=== PATIENT | male | born 1975 | race Two or more races ===

== ENCOUNTER 2016-08-13 08:05 | Emergency (ER) | payer SELFPAY ==
[~2016-08-13] VITALS: Ht 175.3 cm; Wt 90.7 kg
[~2016-08-13 08:05] MED LIST: NORPTMEDS CO
[2016-08-13 08:20] VITALS: BP 140/80
== END 2016-08-13 09:15 | disposition home or self-care (01) ==
LOC: ER 08:08
DX: L08.89 Other specified local infections of the skin and subcutaneous tissue (principal); B35.3 Tinea pedis

== ENCOUNTER 2017-01-02 08:39 | Emergency (ER) | payer SELFPAY ==
[~2017-01-02] VITALS: Ht 175.3 cm; Wt 104.3 kg
[2017-01-02 08:53] VITALS: BP 137/85
== END 2017-01-02 11:14 | disposition left against medical advice (07) ==
LOC: ER 08:42
DX: J02.9 Acute pharyngitis, unspecified (principal); Z53.21 Procedure and treatment not carried out due to patient leaving prior to being seen by health care provider

== ENCOUNTER 2018-08-15 21:13 | Emergency (ER) | payer MEDICAID ==
[~2018-08-15] VITALS: Ht 175.3 cm; Wt 99.8 kg
[2018-08-15 21:19] VITALS: BP 174/103
[2018-08-15] MEDS ORDERED: cloNIDine HCL 0.1 MG TAB PO ONE (21:30)
== END 2018-08-15 22:30 | disposition home or self-care (01) ==
LOC: ER 21:17
DX: M23.91 Unspecified internal derangement of right knee (principal)
CPT/HCPCS: 29505; 73560

== ENCOUNTER 2018-10-16 10:28 | Emergency (ER) | payer MEDICAID ==
[~2018-10-16] VITALS: Ht 175.3 cm; Wt 104.3 kg
[2018-10-16] MEDS ORDERED: KETOROLAC TROMETH 30 MG/ML 1ML VIAL IV ONE (11:00)
[2018-10-16] MEDS ORDERED: SODIUM CHLORIDE 0.9% 1,000 ML IV ONE ×5 (11:00)
[2018-10-16] MEDS ORDERED: ONDANSETRON HCL 4 MG/2 ML VIAL IV ONE (11:00)
[2018-10-16 11:13] LABS: Basophils # (auto) 0 uL; Basophils % (auto) 0.1 % (0.0-2.0); Eosinophils # (auto) 0 uL; Eosinophils % (auto) 0.1 % (0.0-7.0); Hemoglobin 16.2 g/dL (13.5-17.5); Lymphocytes # (auto) 0.9 uL; Lymphocytes % (auto) 5.9 % (10.0-50.0); Mean Corpuscular Hemoglobin 27.1 pg (28.0-32.0); Mean Corpuscular Volume 82.1 fL (80.0-100.0); Monocytes # (auto) 0.5 uL; Monocytes % (auto) 3.3 % (0.0-12.0); Neutrophils # (auto) 13.3 uL; Neutrophils % (auto) 90.6 % (37.0-80.0); Nucleated Red Blood Cells % 0.1 %; Platelet Count (auto) 257 10^3/uL (140-450); Red Blood Cells 5.96 10^6/uL (4.5-5.90); Red Cell Distribution Width 14.7 % (11.8-14.3); White Blood Cell 14.7 10^3/uL (4.4-10.8)
[2018-10-16 11:36] LABS: Albumin 4.1 g/dL (3.4-5.0); Calcium 9.2 mg/dL (8.5-10.1); Potassium 3.9 mmol/L (3.5-5.1)
[2018-10-16 11:41] LABS: BUN/Creatinine Ratio 13.3; Bilirubin, Total 0.7 mg/dL (0.2-1.0); Total Protein 7.9 g/dL (6.4-8.2)
[2018-10-16] MEDS ORDERED: ACETAMINOPHEN 325 MG TAB PO ONE (11:45)
[2018-10-16 12:36] LABS: Urine Bacteria NONE SEEN /hpf (None Seen); Urine Blood Negative /uL (Negative); Urine Hyaline Cast FEW /lpf (0 - 2); Urine Mucus FEW (None Seen); Urine Specific Gravity 1.027 (1.001-1.035); Urine WBC 1 /hpf (0 - 3)
[2018-10-16 14:49] VITALS: BP 133/58
[2018-10-16] MEDS ORDERED: cefTRIAXone 1GM/50ML D5W 50 ML IV ONE (15:00)
[2018-10-16] MEDS ORDERED: TAMSULOSIN HYDROCHLORIDE 0.4 MG CAP PO ONE (15:00)
== END 2018-10-16 15:26 | disposition home or self-care (01) ==
LOC: ER 10:45
DX: N20.0 Calculus of kidney (principal)
CPT/HCPCS: 36415; 74176; 80053; 81001; 85025; 93971; 96374; 96375; 99284; J0696; J1885; J2405; J7030

== ENCOUNTER 2019-05-19 23:14 | Emergency (ER) | payer MEDICAID ==
[~2019-05-19] VITALS: Ht 175.3 cm; Wt 99.8 kg
[2019-05-19 23:45] VITALS: BP 144/85
[2019-05-20] MEDS ORDERED: cefTRIAXone SOD 1,000 MG VL IM ONE
[2019-05-20] MEDS ORDERED: LIDOCAINE 1% HCL (LOCAL ANESTH.) INJ 20ML MDV ID ONE (00:30)
== END 2019-05-20 00:50 | disposition home or self-care (01) ==
LOC: ER 23:16
DX: S40.861A Insect bite (nonvenomous) of right upper arm, initial encounter (principal); W57.XXXA Bitten or stung by nonvenomous insect and other nonvenomous arthropods, initial encounter; Y93.89 Activity, other specified; Y92.89 Other specified places as the place of occurrence of the external cause; Y99.8 Other external cause status
CPT/HCPCS: 96372; 99283; J0696; J2001

== ENCOUNTER 2020-12-08 23:46 | Emergency (ER) | payer MEDICAID ==
[~2020-12-08] VITALS: Ht 175.3 cm; Wt 102.1 kg
[2020-12-08 23:53] VITALS: BP 156/101
[2020-12-09 00:57] LABS: BUN/Creatinine Ratio 9.8; Calcium 8.7 mg/dL (8.5-10.1); Potassium 3.7 mmol/L (3.5-5.1)
[2020-12-09 01:11] LABS: Basophils # (auto) 0 10 ^3/uL (0-0.2); Basophils % (auto) 0.4 % (0.0-2.0); Eosinophils # (auto) 0.2 10 ^3/uL (0-0.8); Eosinophils % (auto) 2.6 % (0.0-7.0); Hemoglobin 14.8 g/dL (13.5-17.5); Lymphocytes # (auto) 1.3 10 ^3/uL (0.4-5.4); Lymphocytes % (auto) 17.8 % (10.0-50.0); Mean Corpuscular Hemoglobin 27.7 pg (28.0-32.0); Mean Corpuscular Hgb Conc. 33.6 g/dL (32.0-36.0); Mean Corpuscular Volume 82.4 fL (80.0-100.0); Monocytes # (auto) 0.6 10 ^3/uL (0-1.3); Monocytes % (auto) 7.8 % (0.0-12.0); Neutrophils # (auto) 5.3 10 ^3/uL (1.6-8.6); Neutrophils % (auto) 71.4 % (37.0-80.0); Nucleated Red Blood Cells % 0.1 %; Platelet Count (auto) 266 10^3/uL (140-450); Red Blood Cells 5.34 10^6/uL (4.5-5.90); Red Cell Distribution Width 14.7 % (11.8-14.3); White Blood Cell 7.4 10^3/uL (4.4-10.8)
[2020-12-09] MEDS ORDERED: cefTRIAXone W LIDOCAINE 500 MG IM IM ONE (02:00)
[2020-12-09] MEDS ORDERED: AZITHROMYCIN 250 MG TAB PO ONE (02:00)
== END 2020-12-09 02:57 | disposition left against medical advice (07) ==
LOC: ER 23:47
DX: R10.30 Lower abdominal pain, unspecified (principal); R30.0 Dysuria
CPT/HCPCS: 36415; 80048; 85025; 99283; J0696

== ENCOUNTER 2021-04-08 11:17 | Emergency (ER) | payer MEDICAID ==
[~2021-04-08] VITALS: Ht 175.3 cm; Wt 108.9 kg
[2021-04-08 12:43] LABS: Calcium 9.9 mg/dL (8.5-10.1)
[2021-04-08 12:46] LABS: BUN/Creatinine Ratio 17.4; Bilirubin, Total 0.2 mg/dL (0.2-1.0); Total Protein 8.1 g/dL (6.4-8.2)
[2021-04-08 16:17] VITALS: BP 128/68
== END 2021-04-08 16:14 | disposition home or self-care (01) ==
LOC: ER 11:17
DX: R10.84 Generalized abdominal pain (principal); I10 Essential (primary) hypertension; F17.210 Nicotine dependence, cigarettes, uncomplicated
CPT/HCPCS: 36415; 74176; 80053; 82150; 83690

== ENCOUNTER 2025-01-21 13:31 | Emergency (ER) | payer MEDICAID ==
[~2025-01-21] VITALS: Ht 175.3 cm; Wt 109.0 kg
[2025-01-21 13:48] VITALS: BP 179/89; PULSE 89; RESP 20; TEMP 98.8; O2SAT 97
[2025-01-21] MEDS ORDERED: cefTRIAXone SOD 1,000 MG VL IM ONE (14:15)
[2025-01-21] MEDS ORDERED: KETOROLAC TROMETH 30 MG/ML 1ML VIAL IM ONE (14:15)
--- NOTE | 2025-01-21 14:22 | ED.PDOC ---
History of Present Illness HPI Comments 50-year-old male with a history of high blood pressure presents to the ED for the chief complaint of a possible black bite to the right medial malleolus. Patient's ankle is noted to have redness with a associates swelling in his hot to the touch. Patient states the bite happened approximately four da ys ago. Still able to bear weight Denies discharge Denies fever chills night sweats nausea vomiting Chief Complaint: Insect Bite Time Seen by MD: 14:18 Primary Care Provider: NONE Reviewed Notes: Nurses Notes, Medications, Allergies Allergies: Coded Allergies: NO KNOWN ALLERGIES (Unverified , 04/18/13) Home Meds Active Scripts Cephalexin Monohydrate (Cephalexin) 500 Mg Tab, 1 TAB PO QID for 5 Days, #20 TAB 0 Refills Prov:MISAEL STEVE BUSINESS REPORTER 01/21/25 Sulfamethoxazole W/Trimethopri (Bactrim Ds Tablet) 1 Tab Tb, 1 TAB PO BID for 7 Days, #14 TAB 0 Refills Prov:MISAEL STEVE NP 01/21/25 Reported Medications No Reported Medication (NO REPORTED MEDICATION) Ea, 0 CO UNK PATIENT HAS NO REPORTED MEDICATIONS 04/18/13 Information Source: Patient Mode of Arrival: Ambulatory Severity: Moderate Timing: Days Duration: Intermittent, Days Prehospital treatment: None Past Medical History PAST MEDICAL HISTORY: HTN Surgical History: Denies all surgeries Family History Family History: Family hx of DM, Family hx of Cancer, Family hx of heart jeremiah, Family hx of Kidney jeremiah Social History Smoker: Cigarettes Alcohol: Occasionally Drugs: Denies Drug Use Lives In: Home Constitutional: denies: chills, diaphoresis, fatigue, fever, malaise, sweats, weakness, others EENTM: denies: blurred vision, double vision, ear bleeding, ear discharge, ear drainage, ear pain, ear ringing, eye pain, eye redness, hearing loss, mouth pain, mouth swelling, nasal discharge, nose bleeding, nose congestion, nose pain, photophobia, tearing, throat pain, throat swelling, voice changes, others Respiratory: denies: cough, hemoptysis, orthopnea, SOB at rest, shortness of breath, SOB with excertion, stridor, wheezing, others Cardiovascular: denies: chest pain, dizzy spells, diaphoresis, Dyspnea on exertion, edema, irregular heart beat, left arm pain, lightheadedness, palpitations, PND, syncope, others Gastrointestinal: denies: abdomen distended, abdominal pain, blood streaked bowels, constipated, diarrhea, dysphagia, difficulty swallowing, hematemesis, melena, nausea, poor appetite, poor fluid intake, rectal bleeding, rectal pain, vomiting, others Genitourinary: denies: burning, dysuria, flank pain, frequency, hematuria, incontinence, penile discharge, penile sore, pain, testicle pain, testicle swelling, urgency, others Neurological: denies: dizziness, fainting, headache, left sided numbness, left sided weakness, numbness, paresthesia, pre-existing deficit, right sided numbness, right sided weakness, seizure, speech problems, tingling, tremors, weakness, others Musculoskeletal: denies: back pain, gout, joint pain, joint swelling, muscle pain, muscle stiffness, neck pain, others Integumetry: reports: wounds; denies: bruises, change in color, change in hair/nails, dryness, laceration, lesions, lumps, rash, others Allergic/Immunocompromised: denies: Difficulty Healing, Frequent Infections, Hives, Itching, others Hematologic/Lymphatic: denies: anemia, blood clots, easy bleeding, easy bruising, swollen glands, others Endocrine: denies: excessive hunger, excessive sweating, excessive thirst, excessive urination, flushing, intolerance to cold, intolerance to heat, unexplained weight gain, unexplained weight loss, others Psychiatric: denies: anxiety, bipolar disorder, depression, hopeless, panic disorder, schizophrenia, sleepless, suicidal, others All Other Systems: Reviewed and Negative Physical Exam General Appearance: Mild Distress, Normal, Obese HEENT: Normal ENT Inspection, Pharynx Normal, TMs Normal Neck: Full Range of Motion, Non-Tender, Normal, Normal Inspection Respiratory: Chest Non-Tender, Lungs Clear, No Accessory Muscle Use, No Respiratory Distress, Normal Breath Sounds Cardiovascular: No Murmur, No Gallop, Regular Rate/Rhythm Breast Exam: Deferred Gastrointestinal: No Organomegaly, Non Tender, No Pulsatile Mass, Normal Bowel Sounds, Soft Genitalia: Deferred Pelvic: Deferred Rectal: Deferred Extremities: No calf tenderness, Normal capillary refill, Normal range of motion Musculoskeletal : Location: Right Extremity Location: Ankle (Notable swelling, noticeable erythema, TTP to the right medial malleolus and distal tibial fibular shaft, full ROM, DP 2+, capillary refill less than 3 seconds) Apperance: Normal Neurologic: Alert, No Motor Deficits, Normal Affect, Normal Mood, No Sensory Deficits Cerebellar Function: Normal Reflexes: Normal Skin: Dry, Normal Color, Warm Lymphatic: No Adenopathy Was a procedure done? Was a procedure done?: No Differential Dx Considerations may include: cellulitis X-Ray, Labs, Meds, VS Vital Signs Date Time Temp Pulse Resp B/P (MAP) Pulse Ox O2 Delivery O2 Flow Rate FiO2 01/21/25 13:48 98.8 89 20 179/89 97 98.8 X-Ray, Labs, Meds, VS Comment 50-year-old male with a history of high blood pressure presents to the ED for the chief complaint of a possible black bite to the right medial malleolus. Patient arrives alert and oriented, ABC's intact, afebrile, vital signs stable, saturating well in room air Patient was given: Rocephin and Toradol IM _. History and findings consistent with cellulitis. The area of infection does not appear to have any loculations/induration based on physical exam. The patient did not require an incision and drainage. Patient well appearing. VSS. Given History, Exam, and Workup I have low suspicion for Necrotizing Fasciitis, Abscess, Osteomyelitis, DVT or other emergent problem as a cause for this presentation. Low risk for treatment failure based on history. Prescribed p.o. antibiotics for presentation of symptoms Complete course of antibiotic therapy even if symptoms improve or resolve. The re should be no leftover antibiotics as this can lead to antibiotic resistant bacteria and even worse infection. Patient verbalized understanding. Potential side effects discussed with patient including abdominal pain, nausea, diarrhea. Patient was advised to return in 24-48 hours for a wound check. Sooner for any worsening symptoms the patient verbalized understanding to the plan Patient is stable for discharge at this time. External notes reviewed. Test results and diagnostic imaging interpreted. All diagnostic findings, discharge care, education and instructions provided Follow-up with PCP in 2 to 3 days Patient verbalized understanding and agreed to treatment plan Vital signs stable, afebrile, no acute distress noted Patient ambulatory with strong steady gait Advised to return precautions for any new or worsening symptoms, return to ER immediately for re-evaluation Patient is aware that the purpose of this visit was for an acute medical emergency requiring emergent stabilization. Chronic conditions, including malignancies have not been ruled out. Patient is instructed to follow up with PCP as directed and discharge instructions for continued care and workup. If unable to arrange follow-up, patient is to return to the emergency department for reassessment. Patient (parent or legal guardian if applicable) was given verbal and written discharge instructions and acknowledges understanding. Additional MDM Review of External, Non-ED records: External records reviewed. Discussion with independent historian (EMS, family) history obtained from the patient/parents (if applicable) at bedside Chronic conditions affecting care: None Social determinants of health affecting care: None Time of 1ST Reevaluation: 14:48 Reevaluation 1ST: Unchanged Patient Education/Counseling: Diagnosis, Treatment, Need For Follow Up Family Education/Counseling: No Family Present SEPSIS Sepsis Screen Date sepsis recognized/suspect: Jan 21, 2025 Time Sepsis recognized/suspect: 1348 Recent Procedure: No On Antibiotic Therapy: No Respiratory Rate >20: No Heart Rate >90: No Temp<36 C (96.8 F) or >38.3 C: No SBP <90 or MAP <65 mmHG: No New Acute Mental Status Change: No Is the patient on CPAP, BIPAP,: No Vital Signs Date Time Temp Pulse Resp B/P (MAP) Pulse Ox O2 Delivery O2 Flow Rate FiO2 01/21/25 13:48 98.8 89 20 179/89 97 98.8 Departure 1 Departure Time of Disposition: 14:53 Impression: Primary Impression: Cellulitis, leg Qualified Codes: L03.115 - Cellulitis of right lower limb Disposition: 01 HOME / SELF CARE / HOMELESS Condition: Stable e-Prescriptions Cephalexin Monohydrate (Cephalexin) 500 Mg Tab 1 TAB PO QID for 5 Days, #20 TAB 0 Refills Prov: MISAEL STEVE BUSINESS REPORTER 01/21/25 Sulfamethoxazole W/Trimethopri (Bactrim Ds Tablet) 1 Tab Tb 1 TAB PO BID for 7 Days, #14 TAB 0 Refills Prov: MISAEL STEVE BUSINESS REPORTER 01/21/25 Critical Care Note Critical Care Time?: No Stability Stability form required: No Heart Score Heart Score: Heart Score Response (Comments) Value History N/A 0 EKG N/A 0 Age N/A 0 Risk Factors N/A 0 Troponin N/A 0 Total 0 I personally scribed for MISAEL STEVE NP ([email or web address]) on 01/21/25 at 14:22. Electronically submitted by Chente Lopez ([email or web address]). I personally scribed for MISAEL SETVE NP ([email or web address]) on 01/21/25 at 14:28. Electronically submitted by Chente Lopez ([email or web address]). MISAEL STEVE NP Jan 21, 2025 14:22
[2025-01-21] MEDS ORDERED: BACDST PO (14:54)
[2025-01-21] MEDS ORDERED: CEPH500T PO (14:54)
== END 2025-01-21 17:06 | disposition home or self-care (01) ==
LOC: ER 13:31
DX: L03.115 Cellulitis of right lower limb (principal); I10 Essential (primary) hypertension; F17.210 Nicotine dependence, cigarettes, uncomplicated